=== PATIENT | male | born 1950 | race American Indian/Alaskan Native ===

== ENCOUNTER 2020-07-08 14:33 | Emergency (ER) | payer MEDICARE ==
--- NOTE | 2020-07-08 15:39 | Emergency Department Report ---
HPI - General Chief Complaint: Extremity Injury, Lower Time Seen by Provider: 07/08/20 15:28 - HPI HPI: This is a 70-year-old male who presents to the emergency department, sent in by an urgent care, with complaint of left foot and leg pain and concern for discoloration of his toes. Also, the provider at the urgent care says that she was unable to palpate a pulse. Patient denies any past medical history but our records show that he has some remote history of lung cancer and a history of hypertension. The patient was fishing 2 days ago, , and had a mechanical fall. His left leg and foot went underneath him and he fell to his side. He denies hitting his head or any loss of consciousness. He is an occasional tobacco smoker. He has not taken anything for his symptoms prior to presentation today. ED Past Medical Hx - Past Medical History Previous Medical History?: Yes Hx Hypertension: Yes Hx of Cancer: Yes (lung) - Surgical History Past Surgical History?: Yes Additional Surgical History: Back, Prostate - Social History Smoking Status: Current Every Day Smoker Substance Use Type: Alcohol ED Review of Systems ROS: Stated complaint: LEFT FOOT NO PULSE Other details as noted in HPI Comment: All other systems reviewed and negative Constitutional: denies: chills, fever Eyes: denies: eye pain, vision change ENT: denies: ear pain, throat pain Respiratory: denies: cough, shortness of breath Cardiovascular: denies: chest pain, palpitations Gastrointestinal: denies: abdominal pain, vomiting Genitourinary: denies: dysuria, discharge Musculoskeletal: arthralgia. denies: joint swelling Skin: change in color. denies: rash Neurological: denies: weakness, numbness, paresthesias Physical Exam - Physical Exam Vital Signs: Vital Signs 07/08/20 14:47 Temperature 98.7 F Pulse Rate 83 Respiratory 20 Rate Blood Pressure 123/71 O2 Sat by Pulse 98 Oximetry Physical Exam: GENERAL: The patient is well-developed well-nourished. HENT: Normocephalic. Atraumatic. Patient has moist mucous membranes. EYES: Extraocular motions are intact. NECK: Supple. Trachea is midline. CHEST/LUNGS: Clear to auscultation. There is no respiratory distress noted. HEART/CARDIOVASCULAR: Regular. There is no tachycardia. There is no murmur. ABDOMEN: Abdomen is soft, nontender. Patient has normal bowel sounds. SKIN: There is a dark purplish hue to the dorsal toes of the left foot, and to the proximal dorsal foot. The left foot is warm but not hot and equal to the right foot. NEURO: The patient is awake, alert, and oriented. The patient is cooperative. The patient has no focal neurologic deficits. Normal speech. MUSCULOSKELETAL: There is some mild tenderness to palpation of the distal left foot. No tenderness to palpation of the toes. Capillary refill less than 2 seconds to all 5 toes of the left foot. There is full range of motion of the left foot and all of the toes. ED Course Vital Signs 07/08/20 14:47 Temperature 98.7 F Pulse Rate 83 Respiratory 20 Rate Blood Pressure 123/71 O2 Sat by Pulse 98 Oximetry ED Medical Decision Making - Lab Data Result diagrams: 07/08/20 15:50 07/08/20 15:50 - Radiology Data Radiology results: report reviewed XR foot 3+V LT, XR tibia fibula 2V LT INDICATION / CLINICAL INFORMATION: left foot pain. COMPARISON: None available. FINDINGS/IMPRESSION: Remote injury to the distal fibula which has healed. Small ossific fragment overlying the talus is most consistent with an age-indeterminate avulsion injury, can correlate for point tenderness. No definite acute fracture seen. No dislocation. - Medical Decision Making This patient was sent in from an urgent care with concern of a possible fracture of the foot or some vascular insufficiency as the provider at the urgent care w as unable to palpate a pulse and he has some discoloration to the toes and foot. The patient's fall was 2 days ago and he says that his foot got bent underneath him as he fell onto his side. He does have a purplish hue that could be some ecchymosis to the dorsal portion of all 5 toes of the left foot, as well as the distal dorsal portion of the foot itself. The foot is warm but not hot and equa l to the right foot. There is capillary refill that is less than 2 seconds to all the toes of the affected left foot. He is able to move the toes and foot without any restriction to range of motion or any significant increase in his pain. An x-ray was done of the foot and tib-fib that did not show any acute fracture, dislocation or any acute process. Patient's labs have been unremarkable including CBC, metabolic panel and coags. Vital signs have been reassuring including being afebrile. It was difficult to definitively palpate the dorsalis pedis pulse on the affected left foot. I took a bedside ultrasound and was able to visualize the dorsalis pedis. Using the M-mode on the ultrasound, I was able to visualize the arterial waveforms, as well as hear his dorsalis pedis pulse. The heart rate was measured at 78 bpm which correlates very closely to the vital signs obtained. For these reasons the patient does not appear to have any significant arterial occlusion. The patient's discomfort and skin color changes are more likely related to his fall/trauma. The patient will be placed on crutches and will be nonweightbearing to his left lower extremity. He follows up with the [facility] for primary care. He has been instructed to follow-up with an orthopedist and vascular surgery and has been given outpatient referrals for those as well. He will return to the emergency department with any increased pain, increased swelling, significant skin color changes, or with any acute distress. Critical Care Time: No Critical care attestation.: If time is entered above; I have spent that time in minutes in the direct care of this critically ill patient, excluding procedure time. ED Disposition Clinical Impression: Left foot pain Fall Qualifiers: Encounter type: initial encounter Qualified Code(s): W19.XXXA - Unspecified fall, initial encounter Contusion of foot Qualifiers: Encounter type: initial encounter Laterality: left Qualified Code(s): S90.32XA - Contusion of left foot, initial encounter Disposition: DC- TO HOME OR SELFCARE Is pt being admited?: No Condition: Stable Instructions: Contusion, Foot Pain Additional Instructions: The x-ray of your foot and left lower leg did not show any fracture or dislocation. I think it is lower likelihood that there is a significant ligament or tendon injury, but I am unable to see this on the x-ray today. You have been given crutches and should be nonweightbearing to the left foot and leg until follow-up with an orthopedist. You may see an orthopedist through the [facility], but I am giving you a referral for one of our local orthopedists, Dr. San. It is also recommended that you see a vascular surgeon as an ultrasound was required to visualize and here the pulses in your foot. I have given you a referral for a local vascular surgeon, Dr. Hood. Please return to the closest emergency department immediately with any increased pain, increased swelling, any further skin color changes, worsening of your symptoms, or with any acute distress. [facility]errals: [facility]Other[facility] - 2-3 Days POLLY SAN MD [Staff Physician] - 2-3 Days ANDREAS HOOD MD [Staff Physician] - 2-3 Days Time of Disposition: 17:38
--- NOTE | 2020-07-08 16:21 | XRay Report ---
XR foot 3+V LT, XR tibia fibula 2V LT INDICATION / CLINICAL INFORMATION: left foot pain. COMPARISON: None available. FINDINGS/IMPRESSION: Remote injury to the distal fibula which has healed. Small ossific fragment overlying the talus is mo st consistent with an age-indeterminate avulsion injury, can correlate for point tenderness. No defin ite acute fracture seen. No dislocation. Signer Name: Avery Chan MD Signed: 07/08/2020 4:17 PM Workstation Name: [id number]
--- NOTE | 2020-07-08 16:21 | XRay Report ---
XR foot 3+V LT, XR tibia fibula 2V LT INDICATION / CLINICAL INFORMATION: left foot pain. COMPARISON: None available. FINDINGS/IMPRESSION: Remote injury to the distal fibula which has healed. Small ossific fragment overlying the talus is mo st consistent with an age-indeterminate avulsion injury, can correlate for point tenderness. No defin ite acute fracture seen. No dislocation. Signer Name: Avery hCan MD Signed: 07/08/2020 4:17 PM Workstation Name: [id number]
[2020-07-08 16:30] VITALS: BP 144/84
[2020-07-08 16:38] LABS: Basophils % (Auto) 0.5 % (0.0-1.8); Eosinophils # (Auto) 0.2 K/mm3 (0.0-0.4); Eosinophils % (Auto) 2.6 % (0.0-4.3); Hematocrit 46.1 % (35.5-45.6); Hemoglobin 15.5 gm/dl (11.8-15.2); Lymphocytes % (Auto) 16.5 % (13.4-35.0); Mean Corpuscular HGB Conc 34 % (32-34); Mean Corpuscular Volume 90 fl (84-94); Monocytes # (Auto) 0.7 K/mm3 (0.0-0.8); Monocytes % (Auto) 12.6 % (0.0-7.3); Platelet Count 234 K/mm3 (140-440); Red Blood Count 5.11 M/mm3 (3.65-5.03); Red Cell Distribution Width 14.8 % (13.2-15.2)
[2020-07-08 16:48] LABS: INR 0.82 (0.87-1.13)
[2020-07-08 16:49] LABS: Partial Thromboplastin Time 39.7 Sec. (24.2-36.6)
[2020-07-08 17:11] LABS: BUN/Creatinine Ratio 10; Blood Urea Nitrogen 13 mg/dL (9-20); Calcium 9.6 mg/dL (8.4-10.2); Hemolysis Index 1
== END 2020-07-08 18:20 | disposition home or self-care (01) ==
LOC: ED 14:33
DX: S90.32XA Contusion of left foot, initial encounter (principal); I10 Essential (primary) hypertension; F17.200 Nicotine dependence, unspecified, uncomplicated; Z98.890 Other specified postprocedural states; W19.XXXA Unspecified fall, initial encounter; Y93.89 Activity, other specified; Y92.89 Other specified places as the place of occurrence of the external cause; Y99.8 Other external cause status
CPT/HCPCS: 36415; 80048; 85025; 85610; 85730